=== PATIENT | male | born 1950 | race Caucasian/White ===

== ENCOUNTER 2016-11-18 11:57 | Outpatient (CLI) | payer MEDICARE ==
--- NOTE | 2016-11-18 14:39 | RAD ---
RIGHT FOREARM 2 VIEWS: HISTORY: Tendinitis for 2 weeks, right forearm pain. FINDINGS/IMPRESSION: No significant bony abnormality is seen. POS: [facility]
== END 2016-11-18 11:58 | disposition home or self-care (01) ==
LOC: MADRAD 11:57
PROVIDERS: ATTEND Obstetrics & Gynecology
DX: M77.9 Enthesopathy, unspecified (principal)

== ENCOUNTER 2017-03-12 14:45 | Outpatient (CLI) | payer MEDICARE ==
--- NOTE | 2017-03-12 16:16 | RAD ---
RIGHT KNEE FOUR VIEWS: 03/12/17 HISTORY: 67-year-old female with medial knee pain and concern for medial collateral ligament sprain. No evidence for acute fracture or dislocation or other significant acute osseous abnormality. IMPRESSION: Unremarkable right knee, given clinical concern, followup nonemergent MRI study might allow further evaluation. POS: [facility]
== END 2017-03-12 14:46 | disposition home or self-care (01) ==
LOC: MADRAD 14:45
PROVIDERS: ATTEND Obstetrics & Gynecology
DX: S83.411A Sprain of medial collateral ligament of right knee, initial encounter (principal)